=== PATIENT | male | born 1960 | race Caucasian/White ===

== ENCOUNTER 2019-05-13 18:58 | Emergency (ER) | payer OTHER ==
[~2019-05-13 18:58] MED LIST: Sterile Water Irrigation 250 ML BOT ONE
[2019-05-13] MEDS ORDERED: Fentanyl 100 MCG/2 ML VIAL ONE ×2 (19:09→19:29)
[2019-05-13] MEDS ORDERED: Piperacillin/Tazobactam 4.5 GM VIAL ONE (19:09)
[2019-05-13] MEDS ORDERED: Sodium Chloride 0.9% 100 ML ONE (19:10)
[2019-05-13 19:13] LABS: #Basophils 0.1 thou/uL (0.0-0.2); #Eosinphils 0.2 thou/uL (0.0-0.7); #Lymphocytes 4.1 thou/uL (1.20-3.40); #Monocytes 0.7 thou/uL (0.11-0.59); #Neutrophils 4.7 thou/uL (1.40-6.50); %Eosinophils 2.1 % (0.0-10.0); %Lymphocytes 41.3 % (21.0-51.0); %Monocytes 7.3 % (0.0-10.0); %Neutrophils 48.3 % (42.0-75.0); Hemoglobin 15.2 g/dL (14.0-18.0); Mean Corpuscular HGB CONC 32.3 g/dL (32.0-36.0); Mean Corpuscular Hemoglobin 31.1 pg (27.0-31.0); Mean Corpuscular Volume 96.3 fL (78.0-98.0); Mean Platelet Volume 8.5 fL (7.4-10.4); Platelet Count 202 thou/uL (130-400); RBC Distribution Width 12.5 % (11.5-14.5); Red Blood Cell (RBC) Count 4.89 mill/uL (4.70-6.10); White Blood Cell (WBC) Count 9.8 thou/uL (4.8-10.8)
[2019-05-13] MEDS ORDERED: Adacel (T-DAP) 0.5 ML SYRINGE ONE (19:20)
[2019-05-13 19:25] LABS: Anion Gap 19 mmol/L (10-20); BUN (Urea Nitrogen) 16 mg/dL (8.4-25.7); Calc. Creatinine Clearance 0 mL/min (70-130); Carbon Dioxide 22 mmol/L (22-29); Chloride 106 mmol/L (98-107); Estimated GFR-MDRD 53; Glucose 108 mg/dL (70-105); Potassium 4.2 mmol/L (3.5-5.1); Sodium 143 mmol/L (136-145)
[2019-05-13] MEDS ORDERED: Ondansetron PF 4 MG/2 ML Vial ONE (19:29)
--- NOTE | 2019-05-13 20:13 | RAD ---
TWO VIEWS RIGHT TIBIA AND FIBULA: 05/13/19 HISTORY: Trauma. FINDINGS: There is a mildly comminuted fracture involving the right tibial metaphysis with mildly comminuted an d fracture involving the fibular head. The distal fracture fragments are displaced laterall y by approximately 1.1 cm. There is separation and mild apex lateral angulation of fracture fragments involving the tibia. There is subcutaneous emphysema seen at the lateral aspect of the knee. The fin dings are likely related to the fracture, an open fracture based on radiographic evaluation cannot be excluded. Calcifications overlie both the medial and lateral joint compartment suggesting chondrocalcinosis. No additional fracture or dislocation is seen involving the right tibia or fibula. IMPRESSION: 1. Mildly comminuted and displaced as well as fractures involving the right tibial met aphysis and right fibular head. 2. Subcutaneous emphysema lateral to the right knee likely related to the fracture; an open frac ture cannot be excluded based on this exam. 3. Chondrocalcinosis involving the joint compartments of the right knee. POS: [facility]
--- NOTE | 2019-05-13 20:15 | RAD ---
TWO VIEWS LEFT TIBIA AND FIBULA: 05/13/19 HISTORY: Trauma. COMPARISON: None available. FINDINGS: No obvious fracture seen involving the left tibia or fibula. The distal aspect of the fibula is exclu ded from view. There is osteoarthritis involving the left knee with calcifications overlying the medi al and lateral joint compartment suggesting chondrocalcinosis. Calcifications are also seen medial to the left knee. IMPRESSION: 1. No acute osseous abnormality left tibia or fibula. 2. Chondrocalcinosis and osteoarthritis involving the left knee. POS: [facility]
== END 2019-05-13 19:50 | disposition short-term general hospital (02) ==
LOC: MADERS 18:58
DX: S82.101B Unspecified fracture of upper end of right tibia, initial encounter for open fracture type I or II (principal); S82.831B Other fracture of upper and lower end of right fibula, initial encounter for open fracture type I or II; S81.812A Laceration without foreign body, left lower leg, initial encounter; W13.9XXA Fall from, out of or through building, not otherwise specified, initial encounter; K21.9 Gastro-esophageal reflux disease without esophagitis; F41.9 Anxiety disorder, unspecified; F17.210 Nicotine dependence, cigarettes, uncomplicated; Z79.899 Other long term (current) drug therapy
CPT/HCPCS: 29505; 80048; 85025; 86900; 86901; 90471; 90715; 96365; 96375; J2405; J2543; J3010; J3490

== ENCOUNTER 2019-10-26 11:14 | Emergency (ER) | payer OTHER, SELFPAY ==
[2019-10-26] MEDS ORDERED: Iopamidol 370 76% 150 ML VIAL FS ONE (11:48)
[2019-10-26] MEDS ORDERED: Sodium Chloride 0.9% 100 ML BAG ONE (11:48)
[2019-10-26 11:53] LABS: #Basophils 0.1 thou/uL (0.0-0.2); #Eosinphils 0.2 thou/uL (0.0-0.7); #Lymphocytes 3.5 thou/uL (1.20-3.40); #Monocytes 0.6 thou/uL (0.11-0.59); #Neutrophils 6.4 thou/uL (1.40-6.50); %Basophils 1.2 % (0.0-1.0); %Eosinophils 2.1 % (0.0-10.0); %Lymphocytes 32.4 % (21.0-51.0); %Monocytes 5.8 % (0.0-10.0); %Neutrophils 58.5 % (42.0-75.0); Hemoglobin 15.2 g/dL (14.0-18.0); Mean Corpuscular HGB CONC 30.8 g/dL (32.0-36.0); Mean Corpuscular Hemoglobin 30.6 pg (27.0-31.0); Mean Corpuscular Volume 99.3 fL (78.0-98.0); Mean Platelet Volume 10.8 fL (7.4-10.4); Platelet Count 260 thou/uL (130-400); RBC Distribution Width 12.8 % (11.5-14.5); Red Blood Cell (RBC) Count 4.97 mill/uL (4.70-6.10); White Blood Cell (WBC) Count 10.9 thou/uL (4.8-10.8)
[2019-10-26 11:54] LABS: PTT 30.6 SEC (22.9-36.1)
[2019-10-26 11:55] LABS: D-Dimer Test 1.1 *mcg/mL (0.27-0.43)
--- NOTE | 2019-10-26 12:04 | RAD ---
PORTABLE CHEST ONE VIEW: 10/26/2019 11:45 a.m. HISTORY: Chest pain. FINDINGS: The heart size is normal. The lungs are expanded without focal areas of consolidation, pneumothoraces or pleural effusions. IMPRESSION: No acute process. POS: [facility]
[2019-10-26 12:05] LABS: ALT (SGPT) 28 U/L (8-55); AST (SGOT) 27 U/L (5-34); Albumin 4.6 g/dL (3.5-5.0); Alkaline Phosphatase 108 U/L (40-110); Anion Gap 15 mmol/L (10-20); BUN (Urea Nitrogen) 13 mg/dL (8.4-25.7); Bilirubin, Total 0.7 mg/dL (0.2-1.2); Calc. Creatinine Clearance 0 mL/min (70-130); Calcium 9.7 mg/dL (7.8-10.44); Carbon Dioxide 26 mmol/L (22-29); Chloride 102 mmol/L (98-107); Estimated GFR-MDRD 80; Globulin 2.7 g/dL (2.4-3.5); Glucose 82 mg/dL (70-105); Potassium 4.3 mmol/L (3.5-5.1); Protein, Total 7.3 g/dL (6.0-8.3); Sodium 139 mmol/L (136-145)
[2019-10-26 12:22] LABS: CKMB 2.2 ng/mL (0-6.6)
[2019-10-26] MEDS ORDERED: Sodium Chloride 0.9% 1,000 ML ONE (12:24)
[2019-10-26] MEDS ORDERED: Aspirin Chewable 81 MG TAB ONE (12:24)
[2019-10-26] MEDS ORDERED: Nitroglycerin 2% Ointment 1 INCH/1 GM Packet ONE (12:24)
--- NOTE | 2019-10-26 13:11 | CT ---
CT PULMONARY ANGIOGRAM WITH IV CONTRAST AND 3-D POSTPROCESSING: HISTORY:Acute chest pain, elevated d-dimer FINDINGS: There is good contrast opacification of the pulmonary arterial vasculature without filling defects to suggest pulmonary embolism. The thoracic aorta is well opacified without aneurysm or dissection. No pleural or pericardial effusions are seen. No pneumothoraces, focal areas of consolidation or lung nodules are noted. There are dependent change s in the posterior lung bases. There are degenerative changes in the spine. Upper abdominal tomograms are unremarkable. IMPRESSION: No CT evidence of pulmonary embolism.
== END 2019-10-26 13:54 | disposition short-term general hospital (02) ==
LOC: MADERS 11:14
DX: R07.9 Chest pain, unspecified (principal); E78.00 Pure hypercholesterolemia, unspecified; F17.210 Nicotine dependence, cigarettes, uncomplicated; K21.9 Gastro-esophageal reflux disease without esophagitis; F41.9 Anxiety disorder, unspecified; Z79.899 Other long term (current) drug therapy
CPT/HCPCS: 71045; 71275; 80053; 82553; 83880; 84484; 85025; 85379; 85730; 93005; 94760; 96360; J3490; J7050

== ENCOUNTER 2021-08-28 10:52 | Outpatient (CLI) | payer BC | END 2021-08-28 10:53 | disposition home or self-care (01) | LOC: MADRAD 10:52 | PROVIDERS: ATTEND Family Medicine | DX: D75.89 Other specified diseases of blood and blood-forming organs (principal) | CPT/HCPCS: 71046 ==